=== PATIENT | female | born 1995 | race African-American/Black ===

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

== ENCOUNTER 2017-02-16 13:51 | Emergency (ER) | payer MEDICAID ==
[~2017-02-16] VITALS: Ht 162.6 cm; Wt 50.0 kg
[~2017-02-16 13:51] MED LIST changes: +IBUP-232 PO; -IBUP800T23 PO; +MUPI2%T TOPICAL
[2017-02-16 13:52] VITALS: BP 132/70; PULSE 69; RESP 16; TEMP 98.8; O2SAT 99
[2017-02-16 14:44] LABS: AUTOMATED NEUTROPHIL # 5.6 TH/MM3 (1.8-7.7); BASOPHIL % 0.4 % (0.0-2.0); EOSINOPHIL % 0.5 % (0.0-4.0); HEMATOCRIT 37.9 % (35.0-46.0); HEMOGLOBIN 12.6 GM/DL (11.6-15.3); LYMPH % 19.7 % (9.0-44.0); LYMPHOCYTE # 1.5 TH/MM3 (1.0-4.8); MEAN CELL VOLUME 81.5 FL (80.0-100.0); MEAN CORPUSCULAR HGB CONC 33.2 % (32.0-36.0); MEAN PLATELET VOLUME 8.7 FL (7.0-11.0); MONO % 6.1 % (0.0-8.0); MONOCYTE # 0.5 TH/MM3 (0-0.9); NEUT % 73.3 % (16.0-70.0); PLATELET COUNT 296 TH/MM3 (150-450); RED BLOOD COUNT 4.65 MIL/MM3 (4.00-5.30); RED CELL DISTRIBUTION WIDTH 13.1 % (11.6-17.2); WHITE BLOOD COUNT 7.6 TH/MM3 (4.0-11.0)
[2017-02-16 15:04] LABS: ALBUMIN 4.2 GM/DL (3.4-5.0); AST (GOT) 22 U/L (16-38); BICARBONATE 23.5 MEQ/L (21.0-32.0); BLOOD UREA NITROGEN 11 MG/DL (7-18); CALCIUM 8.9 MG/DL (8.5-10.1); CHLORIDE 109 MEQ/L (98-107); CREATININE 0.79 MG/DL (0.50-1.00); GLOMERULAR FILTRATION RATE 112 ML/MIN (>89); GLUCOSE,RANDOM 96 MG/DL (74-106); LIPASE 177 U/L (73-393); SODIUM (NA) 140 MEQ/L (136-145)
[2017-02-16 15:06] LABS: ALKALINE PHOSPHATASE 52 U/L (45-117); ALT (GPT) 24 U/L (9-42); TOTAL BILIRUBIN ADULT 0.4 MG/DL (0.2-1.0); TOTAL PROTEIN 7.7 GM/DL (6.4-8.2)
--- NOTE | 2017-02-16 15:24 | PD ---
HPI Chief Complaint: Abdominal Pain Time Seen by Provider: 15:19 Travel History International Travel<30 days: No Contact w/Intl Traveler<30days: No Traveled to known affect area: No History of Present Illness HPI The patient is a 22-year-old [place] female who presents to the emergency department for nausea, vomiting, diarrhea, lower abdominal cramping. The patient states she got her first menstrual cycle at the age of 17, over the last 2-3 years is had similar symptoms almost every month with her cycle. The patient states she is currently on her menstrual cycle, has lower abdominal pelvic cramping that goes into the legs and is associated with nausea and vomiting. She also complains of some loose stools. She denies any fever, chills, or sweats. She denies any dysuria, frequency, urgency, or vaginal discharge. The patient states her last Pap smear was approximately 1-[address] Perkins, was normal. She has a history of similar symptoms in the past secondary to her menstrual cycle. PFSH Past Medical History Developmental Delay: No Diminished Hearing: No Immunizations Current: Yes Seizures: Yes (FEBRILE WHEN SHE WAS SMALLER.) ?: Not LMP: on now : 0 Past Surgical History Abdominal Surgery: Yes (hernia repair age 4) Other Surgery: Yes (UMBILICAL HERNIA REPAIR A ) Social History Alcohol Use: Yes Tobacco Use: No Substance Use: Yes (thc) Allergies-Medications (Allergen,Severity, Reaction): Coded Allergies: No Known Allergies (Verified , 08/07/16) Reported Meds & Prescriptions Reported Meds & Active Scripts Active Ibuprofen 600 Mg Tab 600 Mg PO Q6H PRN Bactroban Topical (Mupirocin) 22 Gm Cream 1 Applic TOPICAL BID Review of Systems Except as stated in HPI: all other systems reviewed are Neg General / Constitutional: No: Fever Cardiovascular: No: Chest Pain or Discomfort Respiratory: No: Shortness of Breath Gastrointestinal: Positive: Nausea, Vomiting, Diarrhea Genitourinary: Positive: Pelvic Pain, Dysmenorrhea, Vaginal Bleeding Physical Exam Narrative GENERAL: Awake, alert, pleasant 22-year-old female who appears her stated age and appears in moderate discomfort. SKIN: Focused skin assessment warm/dry. HEAD: Atraumatic. Normocephalic. EYES: No injection or drainage. ENT: No nasal bleeding or discharge. Mucous membranes pink and moist. NECK: Trachea midline. No JVD. CARDIOVASCULAR: Regular rate and rhythm. No murmur appreciated. RESPIRATORY: No accessory muscle use. Clear to auscultation. Breath sounds equal bilaterally. GASTROINTESTINAL: Abdomen soft, mild suprapubic tenderness but no guarding or rigidity. Back: No CVA tenderness. MUSCULOSKELETAL: No obvious deformities. No clubbing. No cyanosis. No edema. NEUROLOGICAL: Awake and alert. No obvious cranial nerve deficits. Motor grossly within normal limits. Normal speech. PSYCHIATRIC: Appropriate mood and affect; insight and judgment normal. Data Data Last Documented VS Vital Signs Date Time Temp Pulse Resp B/P (MAP) Pulse Ox O2 Delivery O2 Flow Rate FiO2 02/16/17 13:52 98.8 69 16 132/70 (90) 99 Room Air Orders Orders Complete Blood Count With Diff (02/16/17 14:10) Comprehensive Metabolic Panel (02/16/17 14:10) Lipase (02/16/17 14:10) Urinalysis - C+S If Indicated (02/16/17 14:10) Ed Urine Pregnancytest Poc (02/16/17 14:10) Ketorolac Inj (Toradol Inj) (02/16/17 15:30) Morphine Inj (Morphine Inj) (02/16/17 15:30) Sodium Chlor 0.9% 1000 Ml Inj (Ns 1000 M (02/16/17 15:30) Ondansetron Inj (Zofran Inj) (02/16/17 15:30) Labs Laboratory Tests Test 02/16/17 14:18 02/16/17 14:21 White Blood Count 7.6 TH/MM3 Red Blood Count 4.65 MIL/MM3 Hemoglobin 12.6 GM/DL Hematocrit 37.9 % Mean Corpuscular Volume 81.5 FL Mean Corpuscular Hemoglobin 27.0 PG Mean Corpuscular Hemoglobin Concent 33.2 % Red Cell Distribution Width 13.1 % Platelet Count 296 TH/MM3 Mean Platelet Volume 8.7 FL Neutrophils (%) (Auto) 73.3 % Lymphocytes (%) (Auto) 19.7 % Monocytes (%) (Auto) 6.1 % Eosinophils (%) (Auto) 0.5 % Basophils (%) (Auto) 0.4 % Neutrophils # (Auto) 5.6 TH/MM3 Lymphocytes # (Auto) 1.5 TH/MM3 Monocytes # (Auto) 0.5 TH/MM3 Eosinophils # (Auto) 0.0 TH/MM3 Basophils # (Auto) 0.0 TH/MM3 CBC Comment DIFF FINAL Differential Comment Blood Urea Nitrogen 11 MG/DL Creatinine 0.79 MG/DL Random Glucose 96 MG/DL Total Protein 7.7 GM/DL Albumin 4.2 GM/DL Calcium Level 8.9 MG/DL Alkaline Phosphatase 52 U/L Aspartate Amino Transf (AST/SGOT) 22 U/L Alanine Aminotransferase (ALT/SGPT) 24 U/L Total Bilirubin 0.4 MG/DL Sodium Level 140 MEQ/L Potassium Level 3.3 MEQ/L Chloride Level 109 MEQ/L Carbon Dioxide Level 23.5 MEQ/L Anion Gap 8 MEQ/L Estimat Glomerular Filtration Rate 112 ML/MIN Lipase 177 U/L [facility] Medical Decision Making Medical Screen Exam Complete: Yes Emergency Medical Condition: Yes Medical Record Reviewed: Yes Interpretation(s) Laboratory Tests Test 02/16/17 14:18 02/16/17 14:21 White Blood Count 7.6 TH/MM3 Red Blood Count 4.65 MIL/MM3 Hemoglobin 12.6 GM/DL Hematocrit 37.9 % Mean Corpuscular Volume 81.5 FL Mean Corpuscular Hemoglobin 27.0 PG Mean Corpuscular Hemoglobin Concent 33.2 % Red Cell Distribution Width 13.1 % Platelet Count 296 TH/MM3 Mean Platelet Volume 8.7 FL Neutrophils (%) (Auto) 73.3 % Lymphocytes (%) (Auto) 19.7 % Monocytes (%) (Auto) 6.1 % Eosinophils (%) (Auto) 0.5 % Basophils (%) (Auto) 0.4 % Neutrophils # (Auto) 5.6 TH/MM3 Lymphocytes # (Auto) 1.5 TH/MM3 Monocytes # (Auto) 0.5 TH/MM3 Eosinophils # (Auto) 0.0 TH/MM3 Basophils # (Auto) 0.0 TH/MM3 CBC Comment DIFF FINAL Differential Comment Blood Urea Nitrogen 11 MG/DL Creatinine 0.79 MG/DL Random Glucose 96 MG/DL Total Protein 7.7 GM/DL Albumin 4.2 GM/DL Calcium Level 8.9 MG/DL Alkaline Phosphatase 52 U/L Aspartate Amino Transf (AST/SGOT) 22 U/L Alanine Aminotransferase (ALT/SGPT) 24 U/L Total Bilirubin 0.4 MG/DL Sodium Level 140 MEQ/L Potassium Level 3.3 MEQ/L Chloride Level 109 MEQ/L Carbon Dioxide Level 23.5 MEQ/L Anion Gap 8 MEQ/L Estimat Glomerular Filtration Rate 112 ML/MIN Lipase 177 U/L Differential Diagnosis Differential diagnosis includes dysmenorrhea, menorrhagia, ectopic , PID, cervicitis, UTI, gastroenteritis. Narrative Course The patient has a history of similar symptoms with her menstrual cycles, most likely dysmenorrhea. Labs were drawn and sent in triage. The patient was administered morphine, Toradol, Zofran, and IV fluids. Bedside UA test was negative. The patient appears to have dysmenorrhea, she is advised to follow-up with the women's care clinic, may be a candidate for OCP to improve her symptoms. The patient was reevaluated at 4:40 PM, her pain had improved from a 11/15-04/15. The patient will be placed on ibuprofen and pain medication. She is advised to follow-up with a medical doctor. Diagnosis Primary Impression: Dysmenorrhea Referrals: [facility] Patient Instructions: General Instructions Additional Instructions: Follow-up with women's health clinic. Medications as directed. Return if symptoms worsen or progress. Med/Other Pt SpecificInfo: Prescription(s) given Scripts Hydrocodone-Acetaminophen ([place]) 5 Mg-325 Mg Tab 1 TAB PO Q6H Y for PAIN, #10 TAB 0 Refills Prov: Guilherme Berry MD 02/16/17 Ibuprofen (Ibuprofen) 600 Mg Tab 600 MG PO Q6H Y for Pain/Inflammation, #20 TAB 0 Refills Prov: Guilherme Berry MD 02/16/17 Disposition: 01 DISCHARGE HOME Condition: Stable Guilherme Berry MD Feb 16, 2017 15:24
[2017-02-16] MEDS ORDERED: KETOROLAC TROMETHAMINE 30 MG/ML (IVP) VIAL IV PUSH ONE (15:30)
[2017-02-16] MEDS ORDERED: ONDANSETRON HCL 4 MG/2 ML VIAL IV PUSH ONE (15:30)
[2017-02-16] MEDS ORDERED: SODIUM CHLOR 0.9% 1000 ML INJ 1,000 ML IV ONE (15:30)
[2017-02-16] MEDS ORDERED: MORPHINE SULFATE 2 MG/ML INJ IV PUSH ONE (15:30)
[2017-02-16] MEDS ORDERED: IBUP-232 PO ×2 (16:43→16:48)
[2017-02-16] MEDS ORDERED: NORC5TAB PO ×2 (16:43→16:48)
== END 2017-02-16 16:59 | disposition home or self-care (01) ==
LOC: NEPD 13:51
DX: N94.6 Dysmenorrhea, unspecified (principal)
CPT/HCPCS: 80053; 83690; 84703; 85025; 96374; 96375; 99284; J1885; J2270; J2405; J7030

== ENCOUNTER 2017-03-14 08:59 | Emergency (ER) | payer MEDICAID, OTHER ==
[~2017-03-14] VITALS: Ht 160 cm; Wt 50.0 kg
[~2017-03-14 08:59] MED LIST changes: +NORC5TAB PO
[2017-03-14] MEDS ORDERED: IOHEXOL 350 MG/ML 10 ML VIAL (for RAD DIAG) IVCONTRAST ONE (09:00)
[2017-03-14 09:01] VITALS: BP 127/77; PULSE 72; RESP 16; TEMP 98.3; O2SAT 100
[2017-03-14] MEDS ORDERED: ONDANSETRON HCL 4 MG/2 ML VIAL IVP ONE (09:45)
[2017-03-14] MEDS ORDERED: SODIUM CHLOR 0.9% 1000 ML INJ 1,000 ML IV SCH (09:45)
[2017-03-14] MEDS ORDERED: SODIUM CHLORIDE 0.9% FLUSH 10 ML FLUSH IV FLUSH PRN (09:45)
[2017-03-14] MEDS ORDERED: KETOROLAC TROMETHAMINE 30 MG/ML (IVP) VIAL IVP ONE (09:45)
--- NOTE | 2017-03-14 10:00 | PD ---
HPI Chief Complaint: Abdominal Pain Time Seen by Provider: 09:30 Travel History International Travel<30 days: No Contact w/Intl Traveler<30days: No Traveled to known affect area: No History of Present Illness HPI 22-year-old female presents to the emergency Department with complaint of nausea , vomiting, diarrhea this started this morning. Reports lower pelvic pain that also started this morning. Says she gets these same symptoms when she starts her menses and her menses started last night. She says she's been seen multiple times for similar symptoms. Reports her symptoms are consistent with past menstrual cycles. Denies fevers. Denies vaginal discharge, odor. Denies dysuria, hematuria. Rates pain 10/10. Radiates to both her legs. Has not taken any medication or tried any treatments to alleviate her symptoms. Aggravated with onset of menses. No known relieving factors. Denies contraception use. Primary care provider is Dr. Perkins. History of umbilical hernia surgery and she was a baby. Denies other significant past medical history. Denies other abdominal surgeries. No known allergies. Has no medical complaints. No other modifying factors or associated signs and symptoms. PFSH Past Medical History Developmental Delay: No Diminished Hearing: No Immunizations Current: Yes Seizures: Yes (FEBRILE WHEN SHE WAS SMALLER.) Influenza Vaccination: No ?: Not : 0 Past Surgical History Abdominal Surgery: Yes (hernia repair age 4) Other Surgery: Yes (UMBILICAL HERNIA REPAIR A ) Social History Alcohol Use: Yes Tobacco Use: No Substance Use: Yes (marijuana 2 times/day) Allergies-Medications (Allergen,Severity, Reaction): Coded Allergies: No Known Allergies (Verified Adverse Reaction, Unknown, 03/14/17) Reported Meds & Prescriptions Reported Meds & Active Scripts Active No Active Prescriptions or Reported Medications Review of Systems Except as stated in HPI: all other systems reviewed are Neg Physical Exam Narrative GENERAL: Well-nourished, well-developed black female patient, in no acute distress; afebrile SKIN: Warm and dry. HEAD: Atraumatic. Normocephalic. EYES: Pupils equal and round. No scleral icterus. No injection or drainage. ENT: Mucosa pink and moist. Airway patent. NECK: Trachea midline. CARDIOVASCULAR: Regular rate and rhythm. No murmur appreciated. RESPIRATORY: No accessory muscle use. Clear to auscultation. Breath sounds equal bilaterally. GASTROINTESTINAL: Abdomen soft, tenderness on palpation to mid lower pelvic region, nondistended. Hepatic and splenic margins not palpable. Bowel sounds are active 4 quadrants. Nonrigid. No rebound tenderness. No guarding. BACK: No CVA tenderness. MUSCULOSKELETAL: No obvious deformities. No clubbing. No cyanosis. No edema. NEUROLOGICAL: Awake and alert. Oriented 3. No obvious cranial nerve deficits. Motor grossly within normal limits. Normal speech. PSYCHIATRIC: Appropriate mood and affect; insight and judgment normal. Data Data Last Documented VS Vital Signs Date Time Temp Pulse Resp B/P (MAP) Pulse Ox O2 Delivery O2 Flow Rate FiO2 03/14/17 09:01 98.3 72 16 127/77 (94) 100 Room Air Orders Orders Complete Blood Count With Diff (03/14/17 09:45) Comprehensive Metabolic Panel (03/14/17 09:45) Lipase (03/14/17 09:45) Urinalysis - C+S If Indicated (03/14/17 09:45) Iv Access Insert/Monitor (03/14/17 09:45) Ondansetron Inj (Zofran Inj) (03/14/17 09:45) Sodium Chlor 0.9% 1000 Ml Inj (Ns 1000 M (03/14/17 09:45) Sodium Chloride 0.9% Flush (Ns Flush) (03/14/17 09:45) Ketorolac Inj (Toradol Inj) (03/14/17 09:45) Ed Urine Pregnancytest Poc (03/14/17 09:45) Ct Abd/Pel W Iv Contrast(Rout) (03/14/17 09:45) Gc And Chlamydia Pcr (03/14/17 10:00) Oral Contrast - Adult (03/14/17 10:03) Diatrizoate Liq ( Gastroview Liq) (03/14/17 10:45) Iohexol 350 Inj (Omnipaque 350 Inj) (03/14/17 09:00) Labs Laboratory Tests Test 03/14/17 10:10 White Blood Count 5.5 TH/MM3 Red Blood Count 4.87 MIL/MM3 Hemoglobin 13.1 GM/DL Hematocrit 39.7 % Mean Corpuscular Volume 81.5 FL Mean Corpuscular Hemoglobin 26.8 PG Mean Corpuscular Hemoglobin Concent 32.9 % Red Cell Distribution Width 13.2 % Platelet Count 275 TH/MM3 Mean Platelet Volume 8.3 FL Neutrophils (%) (Auto) 71.4 % Lymphocytes (%) (Auto) 21.6 % Monocytes (%) (Auto) 5.6 % Eosinophils (%) (Auto) 0.9 % Basophils (%) (Auto) 0.5 % Neutrophils # (Auto) 3.9 TH/MM3 Lymphocytes # (Auto) 1.2 TH/MM3 Monocytes # (Auto) 0.3 TH/MM3 Eosinophils # (Auto) 0.0 TH/MM3 Basophils # (Auto) 0.0 TH/MM3 CBC Comment DIFF FINAL Differential Comment Urine Color YELLOW Urine Turbidity CLOUDY Urine pH 5.5 Urine Specific [place] 1.025 Urine Protein TRACE mg/dL Urine Glucose (UA) NEG mg/dL Urine Ketones NEG mg/dL Urine Occult Blood SMALL Urine Nitrite NEG Urine Bilirubin NEG Urine Urobilinogen LESS THAN 2.0 MG/DL Urine Leukocyte Esterase NEG Urine RBC 3 /hpf Urine WBC 1 /hpf Urine Amorphous Sediment MOD Urine Mucus FEW /lpf Microscopic Urinalysis Comment CULT NOT INDICATED Blood Urea Nitrogen 8 MG/DL Creatinine 0.84 MG/DL Random Glucose 104 MG/DL Total Protein 7.1 GM/DL Albumin 3.8 GM/DL Calcium Level 9.0 MG/DL Alkaline Phosphatase 51 U/L Aspartate Amino Transf (AST/SGOT) 30 U/L Alanine Aminotransferase (ALT/SGPT) 28 U/L Total Bilirubin 0.4 MG/DL Sodium Level 139 MEQ/L Potassium Level 4.2 MEQ/L Chloride Level 107 MEQ/L Carbon Dioxide Level 25.5 MEQ/L Anion Gap 7 MEQ/L Estimat Glomerular Filtration Rate 105 ML/MIN Lipase 220 U/L [facility] Medical Decision Making Medical Screen Exam Complete: Yes Emergency Medical Condition: Yes Medical Record Reviewed: Yes Differential Diagnosis Dysmenorrhea, appendicitis, PID Narrative Course 22-year-old female visiting multiple times in the past for similar complaint related to dysmenorrhea. I reviewed the patient's medical records and she has been seen here multiple times and with similar complaints. On February 15, 2017 pelvic ultrasound was ordered and was unremarkable. Last CT abdomen/pelvis was done in 2013. I discussed the patient my attending physician, Dr. Giles, and he recommends CT abd/pelvis. CBC, CMP, lipase, urinalysis, voided chlamydia /gonorrhea, UPT, CT abdomen/pelvis, normal saline bolus, Toradol, Zofran ordered. 1053: CBC, CMP, lipase, urinalysis unremarkable. 1401: CT abdomen/pelvis concludes: Abdomen/Pelvis CT 03/14/17 0945 Signed Impressions: Service Date/Time: Tuesday, March 14, 2017 12:05 - CONCLUSION: No acute CT findings in the abdomen or pelvis Brandon Poole MD Patient provided a copy of the CT report. Struct the patient to follow up with gynecology. Chlamydia and gonorrhea pending. Instructed patient to follow up with primary care provider. Patient verbalizes understanding and agreement with treatment plan. Patient is medically cleared and stable for discharge. Discussed reasons to return to the emergency department. Patient agrees with treatment plan. The patients vital signs are stable and the patient is stable for outpatient follow-up and treatment. Patient discharged home, stable and in no acute distress. Diagnosis Primary Impression: Dysmenorrhea Referrals: [facility] Primary Care Physician Patient Instructions: Dysmenorrhea (ED), General Instructions Additional Instructions: Zofran as prescribed and as needed for nausea/vomiting Ibuprofen or Tylenol as directed and as needed for pain Follow-up with gynecology Follow up with primary care provider Med/Other Pt SpecificInfo: Prescription(s) given Scripts Ondansetron Odt (Zofran Odt) 4 Mg Tab 4 MG SL Q8HR Y for Nausea/Vomiting, #6 TAB 0 Refills Prov: Ana Latham 03/14/17 Disposition: 01 DISCHARGE HOME Condition: Stable Ana Latham Mar 14, 2017 10:00
[2017-03-14 10:32] LABS: AUTOMATED NEUTROPHIL # 3.9 TH/MM3 (1.8-7.7); BASOPHIL % 0.5 % (0.0-2.0); EOSINOPHIL % 0.9 % (0.0-4.0); HEMATOCRIT 39.7 % (35.0-46.0); HEMOGLOBIN 13.1 GM/DL (11.6-15.3); LYMPH % 21.6 % (9.0-44.0); LYMPHOCYTE # 1.2 TH/MM3 (1.0-4.8); MEAN CELL VOLUME 81.5 FL (80.0-100.0); MEAN CORPUSCULAR HEMOGLOBIN 26.8 PG (27.0-34.0); MEAN CORPUSCULAR HGB CONC 32.9 % (32.0-36.0); MEAN PLATELET VOLUME 8.3 FL (7.0-11.0); MONO % 5.6 % (0.0-8.0); MONOCYTE # 0.3 TH/MM3 (0-0.9); NEUT % 71.4 % (16.0-70.0); PLATELET COUNT 275 TH/MM3 (150-450); RED BLOOD COUNT 4.87 MIL/MM3 (4.00-5.30); RED CELL DISTRIBUTION WIDTH 13.2 % (11.6-17.2); WHITE BLOOD COUNT 5.5 TH/MM3 (4.0-11.0)
[2017-03-14 10:41] LABS: AMORPHOUS SEDIMENT, URINE MOD; BILIRUBIN, URINE NEG (NEG); BLOOD, URINE SMALL (NEG); GLUCOSE,URINE NEG (NEG); KETONE, URINE NEG (NEG); MUCUS URINE FEW /lpf (OCC); NITRITE,URINE NEG (NEG); PH, URINE 5.5 (5.0-8.5); URINE COLOR YELLOW (YELLW/STRAW); URINE LEUKOCYTE ESTERASE NEG (NEG)
[2017-03-14] MEDS ORDERED: DIATRIZOATE MEGLUM/DIATRIZOATE SOD 9 ML CUP ONE (10:45)
[2017-03-14 10:49] LABS: ALKALINE PHOSPHATASE 51 U/L (45-117); TOTAL BILIRUBIN ADULT 0.4 MG/DL (0.2-1.0); TOTAL PROTEIN 7.1 GM/DL (6.4-8.2)
[2017-03-14 10:51] LABS: ALBUMIN 3.8 GM/DL (3.4-5.0); ALT (GPT) 28 U/L (9-42); AST (GOT) 30 U/L (16-38); BICARBONATE 25.5 MEQ/L (21.0-32.0); BLOOD UREA NITROGEN 8 MG/DL (7-18); CHLORIDE 107 MEQ/L (98-107); CREATININE 0.84 MG/DL (0.50-1.00); GLOMERULAR FILTRATION RATE 105 ML/MIN (>89); GLUCOSE,RANDOM 104 MG/DL (74-106); SODIUM (NA) 139 MEQ/L (136-145)
--- NOTE | 2017-03-14 12:19 | RADRPT ---
EXAM DATE/TIME: 03/14/2017 12:05 [place] COMPARISON: No previous studies available for comparison. INDICATIONS : Lower abdominal pain, nausea, vomiting and diarrhea since this morning. IV CONTRAST: 71 cc Omnipaque 350 (iohexol) IV ORAL CONTRAST: Prescribed oral contrast ingested. RADIATION DOSE: 6.64 CTDIvol (mGy) MEDICAL HISTORY : Seizures. SURGICAL HISTORY : Hernia repair. ENCOUNTER: Initial ACUITY: 1 day PAIN SCALE: 10/10 LOCATION: Bilateral lower quadrant TECHNIQUE: Volumetric scanning of the abdomen and pelvis was performed. Using automated exposure control and ad justment of the mA and/or kV according to patient size, radiation dose was kept as low as reasonably achievable to obtain optimal diagnostic quality images. DICOM format image data is available electro nically for review and comparison. FINDINGS: LOWER LUNGS: The visualized lower lungs are clear. LIVER: Homogeneous density without lesion. There is no dilation of the biliary tree. No calcified gallston es. SPLEEN: Normal size without lesion. PANCREAS: Within normal limits. KIDNEYS: Normal in size and shape. There is no mass, stone or hydronephrosis. ADRENAL GLANDS: Within normal limits. VASCULAR: There is no aortic aneurysm. BOWEL/MESENTERY: The stomach, small bowel, and colon demonstrate no acute abnormality. There is no free intraperitone al air or fluid. ABDOMINAL WALL: Within normal limits. RETROPERITONEUM: There is no lymphadenopathy. BLADDER: No wall thickening or mass. REPRODUCTIVE: Within normal limits. INGUINAL: There is no lymphadenopathy or hernia. MUSCULOSKELETAL: Within normal limits for patient age. CONCLUSION: No acute CT findings in the abdomen or pelvis Brandon Poole MD on March 14, 2017 at 12:14 Board Certified Radiologist. This report was verified electronically.
[2017-03-14] MEDS ORDERED: ZOFR4TAB3 SL (14:01)
== END 2017-03-14 14:26 | disposition home or self-care (01) ==
LOC: NEPD 08:59
DX: N94.6 Dysmenorrhea, unspecified (principal); R19.7 Diarrhea, unspecified; R11.2 Nausea with vomiting, unspecified; F12.90 Cannabis use, unspecified, uncomplicated
CPT/HCPCS: 74177; 80053; 81001; 83690; 84703; 85025; 87491; 87591; 96361; 96374; 96375; 99284; J1885; J2405; J7030; Q9963; Q9967

== ENCOUNTER 2017-05-02 14:19 | Emergency (ER) | payer MEDICAID ==
[~2017-05-02] VITALS: Ht 162.6 cm; Wt 50.9 kg
[~2017-05-02 14:19] MED LIST changes: -IBUP-232 PO; -MUPI2%T TOPICAL; -NORC5TAB PO; +ZOFR4TAB3 SL
[2017-05-02 14:24] VITALS: BP 118/70; PULSE 73; RESP 18; TEMP 98.8; O2SAT 100
[2017-05-02 15:29] LABS: AUTOMATED NEUTROPHIL # 4.5 TH/MM3 (1.8-7.7); BASOPHIL % 0.7 % (0.0-2.0); EOSINOPHIL % 0.6 % (0.0-4.0); HEMATOCRIT 38.2 % (35.0-46.0); HEMOGLOBIN 12.5 GM/DL (11.6-15.3); LYMPH % 22.2 % (9.0-44.0); LYMPHOCYTE # 1.5 TH/MM3 (1.0-4.8); MEAN CELL VOLUME 80.4 FL (80.0-100.0); MEAN CORPUSCULAR HEMOGLOBIN 26.2 PG (27.0-34.0); MEAN CORPUSCULAR HGB CONC 32.6 % (32.0-36.0); MEAN PLATELET VOLUME 8.6 FL (7.0-11.0); MONO % 7.5 % (0.0-8.0); MONOCYTE # 0.5 TH/MM3 (0-0.9); PLATELET COUNT 275 TH/MM3 (150-450); RED BLOOD COUNT 4.75 MIL/MM3 (4.00-5.30); RED CELL DISTRIBUTION WIDTH 13.5 % (11.6-17.2); WHITE BLOOD COUNT 6.6 TH/MM3 (4.0-11.0)
[2017-05-02 15:34] LABS: BACTERIA, URINE RARE /hpf; BILIRUBIN, URINE NEG (NEG); BLOOD, URINE NEG (NEG); GLUCOSE,URINE NEG (NEG); KETONE, URINE NEG (NEG); MUCUS URINE MANY /lpf (OCC); NITRITE,URINE NEG (NEG); PH, URINE 7.5 (5.0-8.5); SQUAMOUS EPITHELIAL CELL URINE <1 /hpf (0-5); URINE COLOR YELLOW (YELLW/STRAW); URINE LEUKOCYTE ESTERASE NEG (NEG)
[2017-05-02 15:44] LABS: ALBUMIN 3.8 GM/DL (3.4-5.0); ALT (GPT) 23 U/L (9-42); AST (GOT) 19 U/L (16-38); BICARBONATE 22.4 MEQ/L (21.0-32.0); BLOOD UREA NITROGEN 12 MG/DL (7-18); CALCIUM 8.7 MG/DL (8.5-10.1); CHLORIDE 109 MEQ/L (98-107); CREATININE 0.68 MG/DL (0.50-1.00); GLOMERULAR FILTRATION RATE 133 ML/MIN (>89); GLUCOSE,RANDOM 96 MG/DL (74-106); SODIUM (NA) 139 MEQ/L (136-145)
[2017-05-02 15:46] LABS: ALKALINE PHOSPHATASE 49 U/L (45-117); TOTAL BILIRUBIN ADULT 0.3 MG/DL (0.2-1.0); TOTAL PROTEIN 7.2 GM/DL (6.4-8.2)
[2017-05-02] MEDS ORDERED: KETOROLAC TROMETHAMINE 60 MG/2 ML (IM) VIAL IM ONE (17:45)
[2017-05-02] MEDS ORDERED: IBUP-232 PO (17:48)
[2017-05-02] MEDS ORDERED: ZOFR4TAB3 SL (17:48)
--- NOTE | 2017-05-02 17:49 | PD ---
HPI Chief Complaint: Abdominal Pain Time Seen by Provider: 17:34 Travel History International Travel<30 days: No Contact w/Intl Traveler<30days: No Traveled to known affect area: No History of Present Illness HPI 22-year-old female, with history of dysmenorrhea, presents to the emergency department complaint of lower abdominal pain that started this morning. Reports that her menses also started this morning. This patient has been seen multiple times in the ER for dysmenorrhea. I saw her March 14 for the same complaint. Reports vomiting one time in the ER waiting room. Denies fevers. Denies diarrhea. Denies abnormal vaginal discharge or odor. Denies abnormal bleeding. Rates pain 10/10. Describes it as a pressure and cramping sensation. Has not taken any medication or try any treatments to alleviate her symptoms. Says she tried following up with gynecology, but they did not have an appointment available and she lost the phone number. No primary care provider. No gynecology. No known allergies. History of dysmenorrhea. Denies other significant past medical history. Has no other medical complaints. No other modifying factors or associated signs and symptoms. PFSH Past Medical History Developmental Delay: No Diminished Hearing: No Immunizations Current: Yes Seizures: Yes (FEBRILE WHEN SHE WAS SMALLER.) ?: Not LMP: 03/19/2017 : 0 Past Surgical History Abdominal Surgery: Yes (hernia repair age 4) Other Surgery: Yes (UMBILICAL HERNIA REPAIR A INFANT) Social History Alcohol Use: Yes Tobacco Use: No Substance Use: Yes (marijuana 2 times/day) Allergies-Medications (Allergen,Severity, Reaction): Coded Allergies: No Known Allergies (Verified Adverse Reaction, Unknown, 03/14/17) Reported Meds & Prescriptions Reported Meds & Active Scripts Active Zofran Odt (Ondansetron Odt) 4 Mg Tab 4 Mg SL Q8HR PRN Ibuprofen 600 Mg Tab 600 Mg PO Q6H PRN Zofran Odt (Ondansetron Odt) 4 Mg Tab 4 Mg SL Q8HR PRN Review of Systems Except as stated in HPI: all other systems reviewed are Neg Physical Exam Narrative GENERAL: Well-nourished, well-developed black female patient, in no acute distress; afebrile SKIN: Warm and dry. HEAD: Atraumatic. Normocephalic. EYES: Pupils equal and round. No scleral icterus. No injection or drainage. ENT: Mucosa pink and moist. Airway patent. NECK: Trachea midline. CARDIOVASCULAR: Regular rate and rhythm. No murmur appreciated. RESPIRATORY: No accessory muscle use. Clear to auscultation. Breath sounds equal bilaterally. GASTROINTESTINAL: Abdomen soft, tenderness on palpation to lower abdomen/pelvic region, nondistended. Hepatic and splenic margins not palpable. Bowel sounds are active 4 quadrants. Nonrigid. No rebound tenderness. No guarding. BACK: No CVA tenderness. MUSCULOSKELETAL: No obvious deformities. No clubbing. No cyanosis. No edema. NEUROLOGICAL: Awake and alert. Oriented 3. No obvious cranial nerve deficits. Motor grossly within normal limits. Normal speech. PSYCHIATRIC: Appropriate mood and affect; insight and judgment normal. Data Data Last Documented VS Vital Signs Date Time Temp Pulse Resp B/P (MAP) Pulse Ox O2 Delivery O2 Flow Rate FiO2 05/02/17 14:24 98.8 73 18 118/70 (86) 100 Orders Orders Complete Blood Count With Diff (05/02/17 14:26) Comprehensive Metabolic Panel (05/02/17 14:26) Lipase (05/02/17 14:26) Urinalysis - C+S If Indicated (05/02/17 14:26) Ed Urine Pregnancytest Poc (05/02/17 14:26) Ketorolac Inj (Toradol Inj) (05/02/17 17:45) Ondansetron Odt (Zofran Odt) (05/02/17 18:00) Labs Laboratory Tests Test 05/02/17 15:00 White Blood Count 6.6 TH/MM3 Red Blood Count 4.75 MIL/MM3 Hemoglobin 12.5 GM/DL Hematocrit 38.2 % Mean Corpuscular Volume 80.4 FL Mean Corpuscular Hemoglobin 26.2 PG Mean Corpuscular Hemoglobin Concent 32.6 % Red Cell Distribution Width 13.5 % Platelet Count 275 TH/MM3 Mean Platelet Volume 8.6 FL Neutrophils (%) (Auto) 69.0 % Lymphocytes (%) (Auto) 22.2 % Monocytes (%) (Auto) 7.5 % Eosinophils (%) (Auto) 0.6 % Basophils (%) (Auto) 0.7 % Neutrophils # (Auto) 4.5 TH/MM3 Lymphocytes # (Auto) 1.5 TH/MM3 Monocytes # (Auto) 0.5 TH/MM3 Eosinophils # (Auto) 0.0 TH/MM3 Basophils # (Auto) 0.0 TH/MM3 CBC Comment DIFF FINAL Differential Comment Urine Color YELLOW Urine Turbidity CLEAR Urine pH 7.5 Urine Specific [place] 1.025 Urine Protein TRACE mg/dL Urine Glucose (UA) NEG mg/dL Urine Ketones NEG mg/dL Urine Occult Blood NEG Urine Nitrite NEG Urine Bilirubin NEG Urine Urobilinogen LESS THAN 2.0 MG/DL Urine Leukocyte Esterase NEG Urine RBC 1 /hpf Urine WBC 2 /hpf Urine Squamous Epithelial Cells <1 /hpf Urine Bacteria RARE /hpf Urine Mucus MANY /lpf Microscopic Urinalysis Comment CULT NOT INDICATED Blood Urea Nitrogen 12 MG/DL Creatinine 0.68 MG/DL Random Glucose 96 MG/DL Total Protein 7.2 GM/DL Albumin 3.8 GM/DL Calcium Level 8.7 MG/DL Alkaline Phosphatase 49 U/L Aspartate Amino Transf (AST/SGOT) 19 U/L Alanine Aminotransferase (ALT/SGPT) 23 U/L Total Bilirubin 0.3 MG/DL Sodium Level 139 MEQ/L Potassium Level 3.8 MEQ/L Chloride Level 109 MEQ/L Carbon Dioxide Level 22.4 MEQ/L Anion Gap 8 MEQ/L Estimat Glomerular Filtration Rate 133 ML/MIN Lipase 145 U/L MDM Medical Decision Making Medical Screen Exam Complete: Yes Emergency Medical Condition: Yes Medical Record Reviewed: Yes Differential Diagnosis Dysmenorrhea, abdominal pain, medical clearance Narrative Course 22-year-old female that has been seen multiple times in the emergency department for dysmenorrhea. She started her menses this morning with onset of lower abdominal pain and vomited one time in the ER waiting room. The symptoms are consistent with onset of her menses and past symptoms. I saw this patient on March [address] of the abdomen pelvis was performed and was unremarkable. I do not feel it is necessary for repeat imaging. I discussed the patient with Dr. Skinner, my attending physician, and he agrees with plan of care. Toradol and Zofran administered in the ER. Ibuprofen and Zofran prescribed for home. Instructed patient to follow-up with cd reactor operator. Contact information for follow-up provided. CBC, CMP, urinalysis ordered in triage and all unremarkable; UPT negative. Instructed patient to follow up with primary care provider. Patient verbalizes understanding and agreement with treatment plan. Patient is medically cleared and stable for discharge. Discussed reasons to return to the emergency department. Patient agrees with treatment plan. The patients vital signs are stable and the patient is stable for outpatient follow-up and treatment. Patient discharged home, stable and in no acute distress. Diagnosis Primary Impression: Dysmenorrhea Referrals: [facility] Primary Care Physician Patient Instructions: Dysmenorrhea (ED), General Instructions Additional Instructions: Ibuprofen or Tylenol as directed and as needed for pain Heat to affected area to help reduce pain Follow-up with cd reactor operator Follow-up with primary care provider Med/Other Pt SpecificInfo: Prescription(s) given Scripts Ondansetron Odt (Zofran Odt) 4 Mg Tab 4 MG SL Q8HR Y for Nausea/Vomiting, #6 TAB 0 Refills Prov: Ana Latham 05/02/17 Ibuprofen (Ibuprofen) 600 Mg Tab 600 MG PO Q6H Y for PAIN, #20 TAB 0 Refills Prov: Ana Latham 05/02/17 Disposition: 01 DISCHARGE HOME Condition: Stable Ana Latham May 02, 2017 17:49
[2017-05-02] MEDS ORDERED: ONDANSETRON ODT 4 MG TAB PO ONE (18:00)
[2017-05-02 18:36] VITALS: BP 125/65
== END 2017-05-02 18:38 | disposition home or self-care (01) ==
LOC: NED 14:19 → NEPD 18:38
DX: N94.6 Dysmenorrhea, unspecified (principal); R11.10 Vomiting, unspecified; F12.90 Cannabis use, unspecified, uncomplicated
CPT/HCPCS: 80053; 81001; 83690; 84703; 85025; 96372; 99283; J1885